=== PATIENT | male | born 1985 | race Caucasian/White ===

== ENCOUNTER 2021-07-04 03:14 | Emergency (ER) | payer MEDICARE, BC ==
[~2021-07-04] VITALS: Ht 170.2 cm; Wt 80.7 kg
[2021-07-04 07:49] VITALS: BP 119/74
[2021-07-04] MEDS ORDERED: IBUP800T27 PO (08:02)
[2021-07-04] MEDS ORDERED: AMOX-277 PO (08:02)
== END 2021-07-04 08:20 | disposition home or self-care (01) ==
LOC: ER 03:18
DX: H66.92 Otitis media, unspecified, left ear (principal); F17.210 Nicotine dependence, cigarettes, uncomplicated